=== PATIENT | female | born 1995 | race Caucasian/White ===

== ENCOUNTER → 2019-01-14 | Day surgery (SDC) | payer OTHER ==
[~2019-01-14] MED LIST: ACETAMINOPHEN 1000 MG/100 ML 100 ML IV ONE; ACETAMINOPHEN/CODEINE 300MG - 30MG TAB ONE; DEXAMETHASONE SOD PHOS INJ 4 MG/ML VIAL ONE; EPINEPHRINE HCL 1:1000 1ML 1 MG/ML AMP ONE; FENTANYL CITRATE/PF 100MCG/2 ML INJ ONE; LIDOCAINE 1% W/EPINEPHRINE 20 ML VIAL ONE; LIDOCAINE HCL 2% JELLY 5 ML TUBE ONE; LIDOCAINE HCL 2% LOCAL INJ 5 ML SDV VIAL INJ ONE; MEPERIDINE HCL INJ 25 MG/ML VIAL ONE; MIDAZOLAM HCL 2 MG/2 ML VIAL ONE; ONDANSETRON HCL INJ 2MG/ML 2ML 2 MG/ML VIAL ONE; PROPOFOL IV EMULSION 10 MG/ML 20 ML VIAL ONE; ROCURONIUM BROMIDE 10 MG/ML 5ML VIAL ONE; SEVOFLURANE INHAL SOLN 250 ML PEN BTL ONE; SUGAMMADEX SODIUM 200 MG/2 ML VIAL IV ONE; probiotic PO; vitamins PO
--- NOTE | 2019-01-14 05:15 | Pre Op History & Physical ---
DATE OF SURGERY: January 14, 2019. CHIEF COMPLAINT: Nasal obstruction and nasal deformity. HISTORY OF PRESENT ILLNESS: This 23-year-old female, who has history of nasal obstruction. She complains of frontal and maxillary pain. She also complains of pressure on her face. The patient has bilateral epistaxis. She has decreased sense of smell. The patient has nasal obstruction on both sides with postnasal drip. Her condition has been treated with more than eight weeks of antibiotics, topical nasal steroid, decongestant with no improvement. REVIEW OF SYSTEMS: System review showed no recent cardiovascular, respiratory, or GI problem. PAST MEDICAL HISTORY: The patient has no significant medical problem. PAST SURGICAL HISTORY: The patient had previous knee surgery and appendectomy. ALLERGIES: SHE HAS NO KNOWN ALLERGIES TO MEDICATIONS. MEDICATION: The patient is on topical nasal spray, with no improvement from topical nasal spray. SOCIAL HISTORY: She smokes about a pack a week and is a social drinker. FAMILY HISTORY: Noncontributory. PHYSICAL EXAMINATION: VITAL SIGNS: On examination, the patient's vital signs were within normal limits. HEENT: Ear exam showed normal tympanic membrane bilaterally. Nasal exam showed deviated nasal septum to the right side in the anterior and midportion about 40% with subluxation of septum to the left. Oropharynx and oral cavity showed 1+ tonsils bilaterally with Mallampati level 2. NECK: Showed no lymph node or thyroid palpable. CHEST: Showed good air entry bilaterally. CARDIOVASCULAR: Showed S1, S2. No murmur noted. ASSESSMENT AND PLAN: Ms. Guo has nasal obstruction, nasal deformity secondary to deviated nasal septum. The suggested treatment is septoplasty, reduction of inferior turbinate, and other necessary procedure. Complication of procedure includes, but not limited to bleeding, infection, perforation of the esophagus, septal perforation, septal hematoma, CSF leak, blindness, double vision, meningitis, persistent nasal obstruction, persistent nasal crusting, nasal deformity, persistent recurrence of the nasal symptoms, or sinus problem. The alternate will be continue observation, topical nasal steroid, systemic steroid, decongestant, and antibiotics. The patient has elected to undergo the surgical procedure. MD MERON Felton/MODL /[id number]
--- OUTSIDE RECORDS SUMMARY | 2019-01-14 07:33 | XMS REPORT ---
Author Author [facility] Address Unknown Phone Unavailable Care Team Providers Care Lan/Wan Engineer Name Role Phone Carlos Skelton Unavailable Unavailable Problems This patient has no known problems. Allergies, Adverse Reactions, Alerts This patient has no known allergies or adverse reactions. Medications This patient has no known medications. Results Test Description Test Time Test Comments Text Results Atomic Results Result Comments Thyroid Para Parotid Gland 2018-12-17 11:24:00 [place] [address] [facility] REPORT Name: EDGARDO SALEH Acct Number: [id number] :1995 Age:23 Sex:F Ord Phys: Carlos Huffman MD Unit Number: [id number] [facility]: Carlos Skelton MD Status: REG REF RAD Exam Date: 12/17/18 EXAM DESCRIPTION: US - Thyroid Para Parotid Gland - 12/17/2018 10:59 am CLINICAL HISTORY: P04 SEE DIAGNOSIS Thyromegaly COMPARISON: No comparisons FINDINGS: The isthmus of the thyroid measures 3 mm. The right lobe of the thyroid measures 3.9 x 1.3 x 1.3 cm. The left lobe of the thyroid measures 3.2 x 1.1 x 0.8 cm. No significant thyroid nodule seen. Tiny subcentimeter bilateral nodules are seen, likely benign. IMPRESSION: Essentially negative study. Signed By: Chris May MD Signed AT: 12/17/18 1129
[2019-01-14 12:00] VITALS: BP 125/82
--- NOTE | 2019-01-14 17:08 | Operative Report ---
DATE OF PROCEDURE: 01/14/2019 SURGEON: Carlos Huffman MD CHIEF COMPLAINT: Nasal obstruction, nasal deformity. POSTOPERATIVE DIAGNOSES: Nasal obstruction, nasal deformity. OPERATIVE PROCEDURE: Septoplasty. ANESTHESIA: Anesthesiology Group. INDICATIONS: This 23-year-old female has history of nasal obstruction. The patient has subluxed septum to the left side anteriorly with a deviated nasal septum in the anterior midportion to the right about 30%-40%. The patient has been treated with topical nasal spray, systemic antibiotics, and decongestant with no improvement of the condition. The patient has bilateral nasal obstruction. It was decided that septoplasty and other necessary procedure will be beneficial for her. DESCRIPTION OF PROCEDURE: The patient was taken to operating room, put under general anesthesia, endotracheally intubated. Nose was injected with 1% Xylocaine with 1:100,000 epinephrine for hemostasis. Epinephrine-soaked pledget was inserted in the nose and subsequently removed. The hemitransfixion incision was done on the left side. Mucoperichondrial flap was elevated on the left. The bony cartilaginous junction was encountered and this was . The perpendicular plate of the ethmoid was transected. This was removed along with the vomer. The septal spur, cartilaginous portion removed all the way to the caudal end of the septum and the bony spur using a 4 mm straight chisel. The subluxed septum was able to sit back after the air was released posteriorly and inferiorly. The nasal airway was also opened up. However, because of the long-term nasal deformity, the inferior portion at the base of the nose at the columella was more protruded to the left nostril. This was corrected by a mattress suture of 4-0 chromic suture, hugging the base of the columella more towards the midline. Two of these sutures were used. Raphael-transection incision was closed using 4-0 chromic suture in interrupted fashion. The septal whipstitch was also done using 4-0 plain gut suture to reapproximate the mucoperichondrial flap and prevent septal hematoma formation. The patient tolerated the above procedure well with estimated blood loss of about 10 mL. She was given 20 mg of Decadron intraoperatively. The patient was able to be transferred to recovery room in stable condition. MD MERON Felton/JANEL /[id number]
== END | disposition home or self-care (01) ==
LOC: OR 07:31
PROVIDERS: ATTEND Otolaryngology Otolaryngology/Facial Plastic Surgery
DX: J32.0 Chronic maxillary sinusitis (principal); J34.89 Other specified disorders of nose and nasal sinuses; J34.2 Deviated nasal septum; Z01.812 Encounter for preprocedural laboratory examination; J45.909 Unspecified asthma, uncomplicated
CPT/HCPCS: 30520; 81025; 88300; J0131; J0171; J1100; J2001 ×2; J2175; J2250; J2405; J2704; J3010